=== PATIENT | male | born 1995 | race Caucasian/White ===

== ENCOUNTER 2021-01-07 11:52 | Emergency (ER) | payer OTHER ==
[~2021-01-07 11:52] MED LIST: AMOXICILLIN500 MG PO; VOLTAREN **OUT75 MG PO
== END 2021-01-07 15:02 | disposition home or self-care (01) ==
LOC: FER 11:52
DX: S93.601A Unspecified sprain of right foot, initial encounter (principal); X50.9XXA Other and unspecified overexertion or strenuous movements or postures, initial encounter; Y92.009 Unspecified place in unspecified non-institutional (private) residence as the place of occurrence of the external cause
CPT/HCPCS: 73630